=== PATIENT | male | born 1955 | race Caucasian/White ===

== ENCOUNTER 2017-07-19 16:13 | Inpatient (IN) | payer MEDICARE, MEDICAID ==
[~2017-07-19] VITALS: Ht 175.3 cm; Wt 103.4 kg
[~2017-07-19 16:13] MED LIST: LEVO25TA4 PO; PROZ10 PO
[2017-07-19] MEDS ORDERED: LORazepam 2 MG TABLET PO PRN (18:15)
[2017-07-19] MEDS ORDERED: HALOPERIDOL 5 MG TABLET PO PRN (18:15)
[2017-07-19] MEDS ORDERED: ZOLPIDEM TARTRATE 10 MG TABLET PO PRN (18:15)
[2017-07-19] MEDS ORDERED: INFLUENZA VIRUS VACCINE QVS 2017-18 (3YR+)/PF 60 MCG/0.5 ML SYRINGE IM ONE (18:15)
[2017-07-19 19:00] VITALS: BP 154/100
[2017-07-19] MEDS: DOXYCYCLINE 100 MG CAPSULE PO SCH (20:00)
[2017-07-19] MEDS: AmLODIPine BESYLATE 10 MG TABLET PO SCH (20:00)
[2017-07-19 20:43] VITALS: BP 119/65
[2017-07-19] MEDS: CEPHALEXIN MONOHYDRATE 500 MG CAPSULE PO SCH (20:52)
[2017-07-19] MEDS ORDERED: ALBUTEROL SULFATE HFA 90 MCG/PUFF 8 GM INHALER IH PRN (21:30)
[2017-07-19] MEDS ORDERED: ACETAMINOPHEN 325 MG TABLET PO PRN (22:15)
[2017-07-19] MEDS ORDERED: IBUPROFEN 600 MG TABLET PO PRN (22:15)
[2017-07-20 01:33] VITALS: BP 136/78
[2017-07-20 06:20] VITALS: BP 140/78
[2017-07-20 08:27] VITALS: BP 118/70
[2017-07-20] MEDS: AmLODIPine BESYLATE 10 MG TABLET PO SCH (09:12)
[2017-07-20] MEDS: CEPHALEXIN MONOHYDRATE 500 MG CAPSULE PO SCH ×4 (09:12→20:38)
[2017-07-20] MEDS: DOXYCYCLINE 100 MG CAPSULE PO SCH ×2 (09:12→16:36)
[2017-07-20 09:41] LABS: BASOPHILS % (AUTO) 0.7 % (0.0-2.0); EOSINOPHILS % (AUTO) 13.1 % (1.0-6.0); HEMATOCRIT 39.3 % (41-53); HEMOGLOBIN 13.4 g/dL (13.5-17.5); LYMPHOCYTES # (AUTO) 1.1 K/uL (1.0-4.8); LYMPHOCYTES % (AUTO) 21.4 % (22.0-44.0); MEAN CORPUSCULAR HEMOGLOBIN 32.4 pg (26.0-34.0); MEAN CORPUSCULAR HGB CONC 34.2 G/dL (31.0-37.0); MEAN CORPUSCULAR VOLUME 95 fL (80-100); MONOCYTES # (AUTO) 0.6 K/uL (0.1-1.0); MONOCYTES % (AUTO) 10.7 % (2.0-9.0); NEUTROPHILS # (AUTO) 2.9 K/uL (1.8-7.7); NEUTROPHILS % (AUTO) 54.1 % (40.0-70.0); PLATELET COUNT (AUTO) 155 K/uL (150-450); RED BLOOD CELL COUNT(AUTO) 4.14 MIL/uL (4.50-5.90); RED CELL DISTRIBUTION WIDTH 15.4 % (11.5-14.5)
[2017-07-20] MEDS ORDERED: PNEUMOCOCCAL VACCINE POLYVALENT 0.5 ML VIAL [PPSV23] IM ONE (10:30)
[2017-07-20 10:32] LABS: ALANINE AMINOTRANSFERASE 112 U/L (12-78); ALBUMIN 2.8 g/dL (3.4-5.0); ALKALINE PHOSPHATASE 131 U/L (46-116); ANION GAP 9 mmol/L (8-16); ASPARTATE AMINOTRANSFERASE 113 U/L (15-37); BILIRUBIN,TOTAL 0.9 mg/dL (0.1-1.0); CALCIUM, TOTAL 8.8 mg/dL (8.8-10.5); CARBON DIOXIDE 25 mmol/L (22-29); CHLORIDE 102 mmol/L (98-107); CHOL/HDL RATIO 3.6 (4.2-7.3); CHOLESTEROL 101 mg/dL (131-200); CREATININE 0.65 mg/dL (0.60-1.30); FREE T4 (FREE THYROXINE) 1.17 ng/dL (0.76-1.46); GLOMERULAR FILTR. RATE CALC > 60 mL/min (>60); GLUCOSE,RANDOM 104 mg/dL (70-110); HDL CHOLESTEROL 28 mg/dL (40-60); LDL CHOL (CALC.) 63 mg/dL (0-130); POTASSIUM 3.9 mmol/L (3.5-5.1); SODIUM SERUM 136 mmol/L (136-145); THYROID STIMULATING HORMONE 3.04 uIU/mL (0.36-3.74); TOTAL PROTEIN, SERUM 6.6 g/dL (6.4-8.2); TRIGLYCERIDES 49 mg/dL (15-150); UREA NITROGEN, BLOOD 14 mg/dL (7-18)
[2017-07-20 15:56] LABS: HEMOGLOBIN A1C 5.3 % (4.5-6.2)
[2017-07-20 16:36] VITALS: BP 146/91
[2017-07-20] MEDS ORDERED: IBUPROFEN 400 MG TABLET PO PRN (16:45)
[2017-07-20] MEDS ORDERED: ACETAMINOPHEN 325 MG TABLET PO PRN (16:45)
[2017-07-20] MEDS: FERROUS SULFATE 325 MG EC TABLET PO SCH (17:10)
[2017-07-20 17:55] VITALS: BP 139/84
[2017-07-21 00:43] VITALS: BP 124/77
[2017-07-21] MEDS: FERROUS SULFATE 325 MG EC TABLET PO SCH ×2 (06:36→16:55)
[2017-07-21] MEDS: LEVOTHYROXINE SODIUM 25 MCG TABLET PO SCH (06:36)
[2017-07-21 08:00] VITALS: BP 135/76
[2017-07-21 08:31] LABS: HEMOGLOBIN A1C 5.8 % (4.5-6.2)
[2017-07-21] MEDS: DOXYCYCLINE 100 MG CAPSULE PO SCH ×2 (08:51→16:55)
[2017-07-21] MEDS: AmLODIPine BESYLATE 10 MG TABLET PO SCH (08:51)
[2017-07-21] MEDS: CEPHALEXIN MONOHYDRATE 500 MG CAPSULE PO SCH ×3 (08:51→17:02)
[2017-07-21 08:56] LABS: THYROID STIMULATING HORMONE 3.76 uIU/mL (0.36-3.74)
[2017-07-21] MEDS: FLUoxetine HCL 20 MG CAPSULE PO SCH (11:53)
[2017-07-21 16:50] VITALS: BP 137/77
[2017-07-22 01:07] VITALS: BP 140/84
[2017-07-22] MEDS: LEVOTHYROXINE SODIUM 25 MCG TABLET PO SCH (06:15)
[2017-07-22] MEDS: FERROUS SULFATE 325 MG EC TABLET PO SCH ×2 (06:28→16:31)
[2017-07-22] MEDS: AmLODIPine BESYLATE 10 MG TABLET PO SCH (08:35)
[2017-07-22] MEDS: SULFAMETHOX/TRIMETH DS 800-160 MG/TABLET PO SCH ×2 (08:36→16:31)
[2017-07-22] MEDS: FLUoxetine HCL 20 MG CAPSULE PO SCH (08:36)
[2017-07-22] MEDS: CEPHALEXIN MONOHYDRATE 500 MG CAPSULE PO SCH ×2 (08:36→16:31)
[2017-07-22 08:51] VITALS: BP 125/81
[2017-07-22 14:00] VITALS: BP 142/72
[2017-07-22] MEDS: MAG HYDROX/AL HYDROX/SIMETH 30 ML SUSP UDCUP PO PRN (16:48)
[2017-07-22 18:02] VITALS: BP 151/78
[2017-07-23 06:26] VITALS: BP 126/69
[2017-07-23] MEDS: FERROUS SULFATE 325 MG EC TABLET PO SCH ×2 (06:32→17:13)
[2017-07-23] MEDS: LEVOTHYROXINE SODIUM 25 MCG TABLET PO SCH (06:32)
[2017-07-23 08:00] VITALS: BP 120/74
[2017-07-23] MEDS: FLUoxetine HCL 20 MG CAPSULE PO SCH (09:03)
[2017-07-23] MEDS: CEPHALEXIN MONOHYDRATE 500 MG CAPSULE PO SCH ×2 (09:03→17:13)
[2017-07-23] MEDS: SULFAMETHOX/TRIMETH DS 800-160 MG/TABLET PO SCH ×2 (09:03→17:13)
[2017-07-23] MEDS: AmLODIPine BESYLATE 10 MG TABLET PO SCH (09:03)
[2017-07-23 16:19] VITALS: BP 121/66
[2017-07-23] MEDS: MAG HYDROX/AL HYDROX/SIMETH 30 ML SUSP UDCUP PO PRN (16:35)
[2017-07-24] MEDS: MAG HYDROX/AL HYDROX/SIMETH 30 ML SUSP UDCUP PO PRN (00:33)
[2017-07-24 00:46] VITALS: BP 119/88
[2017-07-24] MEDS: LEVOTHYROXINE SODIUM 25 MCG TABLET PO SCH (06:03)
[2017-07-24] MEDS: FERROUS SULFATE 325 MG EC TABLET PO SCH ×2 (06:03→16:35)
[2017-07-24] MEDS ORDERED: LOPERAMIDE HCL 2 MG CAPSULE PO PRN (06:30)
[2017-07-24 08:44] VITALS: BP 123/62
[2017-07-24] MEDS: OMEPRAZOLE 20 MG CAPSULE PO SCH ×2 (09:19→16:13)
[2017-07-24] MEDS: CEPHALEXIN MONOHYDRATE 500 MG CAPSULE PO SCH ×2 (09:19→16:13)
[2017-07-24] MEDS: SULFAMETHOX/TRIMETH DS 800-160 MG/TABLET PO SCH ×2 (09:19→16:13)
[2017-07-24] MEDS: AmLODIPine BESYLATE 10 MG TABLET PO SCH (09:19)
[2017-07-24] MEDS: FLUoxetine HCL 20 MG CAPSULE PO SCH (09:20)
[2017-07-24 16:18] VITALS: BP 140/82
[2017-07-25 00:18] VITALS: BP 118/76
[2017-07-25 06:28] VITALS: BP 127/83
[2017-07-25] MEDS: FERROUS SULFATE 325 MG EC TABLET PO SCH ×2 (06:31→16:31)
[2017-07-25] MEDS: LEVOTHYROXINE SODIUM 25 MCG TABLET PO SCH (06:31)
[2017-07-25] MEDS: SULFAMETHOX/TRIMETH DS 800-160 MG/TABLET PO SCH ×2 (08:41→16:31)
[2017-07-25] MEDS: OMEPRAZOLE 20 MG CAPSULE PO SCH ×2 (08:41→16:30)
[2017-07-25] MEDS: AmLODIPine BESYLATE 10 MG TABLET PO SCH (08:41)
[2017-07-25] MEDS: CEPHALEXIN MONOHYDRATE 500 MG CAPSULE PO SCH ×2 (08:41→16:31)
[2017-07-25] MEDS: FLUoxetine HCL 20 MG CAPSULE PO SCH (08:41)
[2017-07-25] MEDS ORDERED: FLUoxetine HCL 20 MG CAPSULE PO SCH (09:00)
[2017-07-25 09:29] VITALS: BP 142/75
[2017-07-25 16:14] VITALS: BP 133/86
[2017-07-26 01:29] VITALS: BP 123/83
[2017-07-26] MEDS: LEVOTHYROXINE SODIUM 25 MCG TABLET PO SCH (06:37)
[2017-07-26] MEDS: FERROUS SULFATE 325 MG EC TABLET PO SCH ×2 (06:38→16:39)
[2017-07-26] MEDS: CEPHALEXIN MONOHYDRATE 500 MG CAPSULE PO SCH ×2 (08:20→16:39)
[2017-07-26] MEDS: SULFAMETHOX/TRIMETH DS 800-160 MG/TABLET PO SCH ×2 (08:20→16:39)
[2017-07-26] MEDS: FLUoxetine HCL 20 MG CAPSULE PO SCH (08:21)
[2017-07-26] MEDS: AmLODIPine BESYLATE 10 MG TABLET PO SCH (08:21)
[2017-07-26] MEDS: OMEPRAZOLE 20 MG CAPSULE PO SCH ×2 (08:21→16:39)
[2017-07-26 08:29] VITALS: BP 120/73
[2017-07-26 16:21] VITALS: BP_SYST 120; BP_SYST 123; BP_DIAS 82; BP_DIAS 87
[2017-07-27 01:14] VITALS: BP 132/83
[2017-07-27] MEDS: LEVOTHYROXINE SODIUM 25 MCG TABLET PO SCH (06:29)
[2017-07-27] MEDS: FERROUS SULFATE 325 MG EC TABLET PO SCH ×2 (06:30→17:05)
[2017-07-27] MEDS: SULFAMETHOX/TRIMETH DS 800-160 MG/TABLET PO SCH ×2 (08:38→17:05)
[2017-07-27] MEDS: FLUoxetine HCL 20 MG CAPSULE PO SCH (08:38)
[2017-07-27] MEDS: AmLODIPine BESYLATE 10 MG TABLET PO SCH (08:38)
[2017-07-27] MEDS: OMEPRAZOLE 20 MG CAPSULE PO SCH ×2 (08:38→17:05)
[2017-07-27] MEDS: CEPHALEXIN MONOHYDRATE 500 MG CAPSULE PO SCH ×2 (08:38→17:05)
[2017-07-27 08:40] VITALS: BP 126/88
[2017-07-27] MEDS: NICOTINE 21 MG/24 HOUR PATCH TD SCH (15:05)
[2017-07-27 17:18] VITALS: BP 128/79
[2017-07-28] MEDS: LEVOTHYROXINE SODIUM 25 MCG TABLET PO SCH (06:36)
[2017-07-28] MEDS: FERROUS SULFATE 325 MG EC TABLET PO SCH ×2 (06:36→16:15)
[2017-07-28] MEDS: SULFAMETHOX/TRIMETH DS 800-160 MG/TABLET PO SCH ×2 (08:31→16:15)
[2017-07-28] MEDS: FLUoxetine HCL 20 MG CAPSULE PO SCH (08:31)
[2017-07-28] MEDS: OMEPRAZOLE 20 MG CAPSULE PO SCH ×2 (08:32→16:15)
[2017-07-28] MEDS: AmLODIPine BESYLATE 10 MG TABLET PO SCH (08:32)
[2017-07-28] MEDS: CEPHALEXIN MONOHYDRATE 500 MG CAPSULE PO SCH ×2 (08:32→16:15)
[2017-07-28] MEDS: NICOTINE 21 MG/24 HOUR PATCH TD SCH (08:33)
[2017-07-28 09:29] VITALS: BP 137/72
[2017-07-28 16:54] VITALS: BP 140/93
[2017-07-28] MEDS ORDERED: BISACODYL 5 MG EC TABLET PO PRN (19:30)
[2017-07-29] MEDS: FERROUS SULFATE 325 MG EC TABLET PO SCH ×2 (06:35→06:53)
[2017-07-29] MEDS: LEVOTHYROXINE SODIUM 25 MCG TABLET PO SCH (06:35)
[2017-07-29 08:42] VITALS: BP 145/86
[2017-07-29] MEDS: FLUoxetine HCL 20 MG CAPSULE PO SCH (09:06)
[2017-07-29] MEDS: SULFAMETHOX/TRIMETH DS 800-160 MG/TABLET PO SCH ×2 (09:06→16:25)
[2017-07-29] MEDS: OMEPRAZOLE 20 MG CAPSULE PO SCH ×2 (09:06→16:25)
[2017-07-29] MEDS: CEPHALEXIN MONOHYDRATE 500 MG CAPSULE PO SCH ×2 (09:06→16:25)
[2017-07-29] MEDS: DOCUSATE SODIUM 100 MG CAPSULE PO SCH ×2 (09:06→16:25)
[2017-07-29] MEDS: AmLODIPine BESYLATE 10 MG TABLET PO SCH (09:07)
[2017-07-29] MEDS: NICOTINE 21 MG/24 HOUR PATCH TD SCH (09:08)
[2017-07-29 18:06] VITALS: BP 139/77
[2017-07-30] MEDS: LEVOTHYROXINE SODIUM 25 MCG TABLET PO SCH (06:52)
[2017-07-30 08:30] VITALS: BP 122/79
[2017-07-30] MEDS: NICOTINE 21 MG/24 HOUR PATCH TD SCH (09:00)
[2017-07-30] MEDS: SULFAMETHOX/TRIMETH DS 800-160 MG/TABLET PO SCH ×2 (09:50→17:05)
[2017-07-30] MEDS: DOCUSATE SODIUM 100 MG CAPSULE PO SCH ×2 (09:50→17:05)
[2017-07-30] MEDS: FLUoxetine HCL 20 MG CAPSULE PO SCH (09:50)
[2017-07-30] MEDS: FERROUS SULFATE 325 MG EC TABLET PO SCH ×2 (09:50→17:05)
[2017-07-30] MEDS: AmLODIPine BESYLATE 10 MG TABLET PO SCH (09:50)
[2017-07-30] MEDS: CEPHALEXIN MONOHYDRATE 500 MG CAPSULE PO SCH ×2 (09:50→17:05)
[2017-07-30] MEDS: OMEPRAZOLE 20 MG CAPSULE PO SCH ×2 (09:50→17:05)
[2017-07-30 17:00] VITALS: BP 129/77
[2017-07-31] MEDS: LEVOTHYROXINE SODIUM 25 MCG TABLET PO SCH (07:03)
[2017-07-31] MEDS: FERROUS SULFATE 325 MG EC TABLET PO SCH ×2 (07:04→16:23)
[2017-07-31] MEDS: NICOTINE 21 MG/24 HOUR PATCH TD SCH (09:00)
[2017-07-31 09:40] VITALS: BP 122/70
[2017-07-31] MEDS: CEPHALEXIN MONOHYDRATE 500 MG CAPSULE PO SCH ×2 (10:36→16:11)
[2017-07-31] MEDS: OMEPRAZOLE 20 MG CAPSULE PO SCH ×2 (10:36→16:11)
[2017-07-31] MEDS: DOCUSATE SODIUM 100 MG CAPSULE PO SCH ×2 (10:36→16:11)
[2017-07-31] MEDS: FLUoxetine HCL 20 MG CAPSULE PO SCH (10:36)
[2017-07-31] MEDS: SULFAMETHOX/TRIMETH DS 800-160 MG/TABLET PO SCH ×2 (10:36→16:11)
[2017-07-31] MEDS: AmLODIPine BESYLATE 10 MG TABLET PO SCH (10:36)
[2017-07-31] MEDS ORDERED: PROPOFOL 1% 20 ML VIAL IVP ONE (12:00)
[2017-07-31] MEDS ORDERED: ONDANSETRON HCL 4 MG/2 ML VIAL IVP ONE (12:00)
[2017-07-31] MEDS ORDERED: MIDAZOLAM HCL 2 MG/2 ML VIAL IVP ONE (12:00)
[2017-07-31] MEDS ORDERED: ALBUTEROL SULFATE HFA 90 MCG/PUFF 8 GM INHALER IH ONE (12:00)
[2017-07-31] MEDS ORDERED: LIDOCAINE HCL/PF 2% 5 ML VIAL INJ ONE (12:00)
[2017-07-31] MEDS ORDERED: KETOROLAC TROMETHAMINE 60 MG/2 ML VIAL IM ONE (12:00)
[2017-07-31] MEDS ORDERED: DEXAMETHASONE SOD PHOS 4 MG/ML VIAL IVP ONE (12:00)
[2017-07-31] MEDS ORDERED: SUCCINYLCHOLINE CHLORIDE 20 MG/ML 10 ML VIAL IVP ONE (12:00)
[2017-07-31 17:13] VITALS: BP 135/69
[2017-08-01] MEDS: LEVOTHYROXINE SODIUM 25 MCG TABLET PO SCH (06:36)
[2017-08-01] MEDS: FERROUS SULFATE 325 MG EC TABLET PO SCH ×2 (06:36→16:52)
[2017-08-01 08:25] VITALS: BP 142/84
[2017-08-01] MEDS: NICOTINE 21 MG/24 HOUR PATCH TD SCH (09:00)
[2017-08-01] MEDS: FLUoxetine HCL 20 MG CAPSULE PO SCH (09:03)
[2017-08-01] MEDS: AmLODIPine BESYLATE 10 MG TABLET PO SCH (09:03)
[2017-08-01] MEDS: DOCUSATE SODIUM 100 MG CAPSULE PO SCH ×2 (09:03→16:49)
[2017-08-01] MEDS: OMEPRAZOLE 20 MG CAPSULE PO SCH ×2 (09:03→16:50)
[2017-08-01 17:18] VITALS: BP 139/81
[2017-08-02] MEDS: FERROUS SULFATE 325 MG EC TABLET PO SCH (07:00)
[2017-08-02] MEDS: LEVOTHYROXINE SODIUM 25 MCG TABLET PO SCH (07:00)
[2017-08-02] MEDS: AmLODIPine BESYLATE 10 MG TABLET PO SCH (08:40)
[2017-08-02] MEDS: OMEPRAZOLE 20 MG CAPSULE PO SCH (08:40)
[2017-08-02] MEDS: DOCUSATE SODIUM 100 MG CAPSULE PO SCH (08:40)
[2017-08-02] MEDS: FLUoxetine HCL 20 MG CAPSULE PO SCH (08:40)
[2017-08-02] MEDS: NICOTINE 21 MG/24 HOUR PATCH TD SCH (09:00)
[2017-08-02 10:29] VITALS: BP 138/85
[2017-08-02] MEDS ORDERED: AMLO-512 PO (12:01)
[2017-08-02] MEDS ORDERED: OMEP20 PO (12:02)
[2017-08-02] MEDS ORDERED: FERR-89 PO (12:02)
[2017-08-02] MEDS ORDERED: DSS100 PO (12:02)
== END 2017-08-02 14:35 | DRG 876 ==
LOC: B2X 18:11 → 3EX 07-27 13:28
PROC: 0J9H0ZZ Drainage of Left Lower Arm Subcutaneous Tissue and Fascia, Open Approach (ICD-10-PCS; principal; 2017-07-31 09:20)
DX: F33.2 Major depressive disorder, recurrent severe without psychotic features (principal); R45.851 Suicidal ideations; K57.92 Diverticulitis of intestine, part unspecified, without perforation or abscess without bleeding; K74.60 Unspecified cirrhosis of liver; L02.414 Cutaneous abscess of left upper limb; E03.9 Hypothyroidism, unspecified; R79.89 Other specified abnormal findings of blood chemistry; R26.9 Unspecified abnormalities of gait and mobility; B19.20 Unspecified viral hepatitis C without hepatic coma; D64.9 Anemia, unspecified; E66.9 Obesity, unspecified; J44.9 Chronic obstructive pulmonary disease, unspecified; K21.9 Gastro-esophageal reflux disease without esophagitis; R29.6 Repeated falls; F19.10 Other psychoactive substance abuse, uncomplicated; Z28.21 Immunization not carried out because of patient refusal; Z59.0 Homelessness; I10 Essential (primary) hypertension; Z88.6 Allergy status to analgesic agent; Z91.5 Personal history of self-harm; Z71.51 Drug abuse counseling and surveillance of drug abuser; Z79.899 Other long term (current) drug therapy
CPT/HCPCS: 10060; 80074; 83036; 84439; 84443; 87070; 87205; 88304; 90471; 97161; 97165; J0330; J1100; J1885; J2250; J2405; J2704; J3490; J3535

== ENCOUNTER 2017-07-21 13:40 | Emergency (ER) | payer MEDICARE, MEDICAID ==
[~2017-07-21] VITALS: Ht 175.3 cm; Wt 100.0 kg
[2017-07-21] MEDS ORDERED: SULFAMETHOX/TRIMETH DS 800-160 MG/TABLET PO ONE (14:30)
[2017-07-21] MEDS ORDERED: CEPHALEXIN MONOHYDRATE 250 MG/5 ML SUSPENSION ORAL.SYG PO ONE (14:30)
[2017-07-21 15:40] VITALS: BP 142/83
== END 2017-07-21 16:32 | disposition home or self-care (01) ==
LOC: EMS 13:41
DX: L03.114 Cellulitis of left upper limb (principal); I10 Essential (primary) hypertension; E03.9 Hypothyroidism, unspecified; F17.210 Nicotine dependence, cigarettes, uncomplicated; Z88.5 Allergy status to narcotic agent
CPT/HCPCS: 99283; 99284

== ENCOUNTER 2018-07-20 14:27 | Inpatient (IN) | payer MEDICARE, MEDICAID ==
[~2018-07-20] VITALS: Ht 175.3 cm; Wt 109.7 kg
[~2018-07-20 14:27] MED LIST changes: +AMLO-512 PO; +DSS100 PO; +FERR-89 PO; +OMEP20 PO
[2018-07-20] MEDS ORDERED: ALBUTEROL SULFATE 2.5 MG/0.5 ML NEB SOLUTION NEB ONE (15:00)
[2018-07-20] MEDS ORDERED: IPRATROPIUM BROMIDE 0.5 MG/2.5 ML NEB SOLUTION NEB ONE ×2 (15:00→17:30)
[2018-07-20 15:35] LABS: BASOPHILS % (AUTO) 0.7 % (0.0-2.0); HEMATOCRIT 41.3 % (41-53); LYMPHOCYTES # (AUTO) 1.5 K/uL (1.0-4.8); LYMPHOCYTES % (AUTO) 23.7 % (22.0-44.0); MEAN CORPUSCULAR HEMOGLOBIN 31.9 pg (26.0-34.0); MEAN CORPUSCULAR HGB CONC 33.8 G/dL (31.0-37.0); MEAN CORPUSCULAR VOLUME 94 fL (80-100); MONOCYTES # (AUTO) 0.5 K/uL (0.1-1.0); MONOCYTES % (AUTO) 7.5 % (2.0-9.0); NEUTROPHILS # (AUTO) 3.8 K/uL (1.8-7.7); NEUTROPHILS % (AUTO) 61.1 % (40.0-70.0); PLATELET COUNT (AUTO) 109 K/uL (150-450); RED BLOOD CELL COUNT(AUTO) 4.38 MIL/uL (4.50-5.90); RED CELL DISTRIBUTION WIDTH 15.1 % (11.5-14.5)
[2018-07-20 15:52] LABS: ANION GAP 8 mmol/L (8-16); CALCIUM, TOTAL 9.7 mg/dL (8.8-10.5); CARBON DIOXIDE 26 mmol/L (22-29); CHLORIDE 103 mmol/L (98-107); CREATININE 0.86 mg/dL (0.60-1.30); GLOMERULAR FILTR. RATE CALC > 60 mL/min (>60); GLUCOSE,RANDOM 103 mg/dL (70-110); POTASSIUM 4.4 mmol/L (3.5-5.1); SODIUM SERUM 137 mmol/L (136-145); UREA NITROGEN, BLOOD 23 mg/dL (7-18)
[2018-07-20 16:01] LABS: B-TYPE NATRIURETIC PEPTIDE 23 pg/mL (0-100)
[2018-07-20 16:02] LABS: ALANINE AMINOTRANSFERASE 77 U/L (12-78); ALBUMIN 3.3 g/dL (3.4-5.0); ALKALINE PHOSPHATASE 105 U/L (46-116); ASPARTATE AMINOTRANSFERASE 66 U/L (15-37); BILIRUBIN,TOTAL 1.1 mg/dL (0.1-1.0); TOTAL PROTEIN, SERUM 7.1 g/dL (6.4-8.2)
[2018-07-20] MEDS ORDERED: ALBUTEROL SULFATE 5 MG/ML 20 ML NEB SOLN [BULK] NEB ONE (17:30)
[2018-07-20] MEDS ORDERED: MethylPREDNISolone SOD SUCC 125 MG/2 ML VIAL IVP ONE (17:30)
[2018-07-20 17:37] LABS: INR 1.1 (0.9-1.1); PROTHROMBIN TIME 11.2 SEC (9.4-11.6)
[2018-07-20] MEDS ORDERED: 0.9% SODIUM CHLORIDE 5 ML NEB SOLUTION NEB ONE (18:26)
[2018-07-20] MEDS ORDERED: ONDANSETRON HCL 4 MG/2 ML VIAL IVP PRN (19:45)
[2018-07-20] MEDS ORDERED: 0.9% SODIUM CHLORIDE 10 ML SYRINGE IVP PRN (19:45)
[2018-07-20] MEDS ORDERED: ACETAMINOPHEN 325 MG TABLET PO PRN ×2 (19:45→21:30)
[2018-07-20] MEDS ORDERED: IPRATROPIUM BROMIDE 0.5 MG/2.5 ML NEB SOLUTION NEB SCH (20:00)
[2018-07-20] MEDS ORDERED: ALBUTEROL SULFATE 2.5 MG/0.5 ML NEB SOLUTION NEB SCH (20:00)
[2018-07-20] MEDS ORDERED: ALBUTEROL SULFATE 2.5 MG/0.5 ML NEB SOLUTION NEB PRN (21:30)
[2018-07-20 21:41] VITALS: BP 121/70
[2018-07-20] MEDS: HEPARIN SODIUM,PORCINE 5,000 UNITS/ML VIAL SQ SCH (23:53)
[2018-07-21 04:20] VITALS: BP 107/50
[2018-07-21 05:54] LABS: BASOPHILS % (AUTO) 0.1 % (0.0-2.0); EOSINOPHILS % (AUTO) 0.1 % (1.0-6.0); HEMATOCRIT 38.9 % (41-53); LYMPHOCYTES # (AUTO) 0.9 K/uL (1.0-4.8); LYMPHOCYTES % (AUTO) 15.2 % (22.0-44.0); MEAN CORPUSCULAR HEMOGLOBIN 31.4 pg (26.0-34.0); MEAN CORPUSCULAR HGB CONC 33.3 G/dL (31.0-37.0); MEAN CORPUSCULAR VOLUME 94 fL (80-100); MONOCYTES # (AUTO) 0.1 K/uL (0.1-1.0); MONOCYTES % (AUTO) 2.2 % (2.0-9.0); NEUTROPHILS # (AUTO) 4.7 K/uL (1.8-7.7); NEUTROPHILS % (AUTO) 82.4 % (40.0-70.0); RED BLOOD CELL COUNT(AUTO) 4.13 MIL/uL (4.50-5.90); RED CELL DISTRIBUTION WIDTH 14.6 % (11.5-14.5)
[2018-07-21 06:51] LABS: PLATELET COUNT (AUTO) 100 K/uL (150-450)
[2018-07-21 06:54] LABS: ALANINE AMINOTRANSFERASE 65 U/L (12-78); ALBUMIN 2.9 g/dL (3.4-5.0); ALKALINE PHOSPHATASE 92 U/L (46-116); ANION GAP 7 mmol/L (8-16); ASPARTATE AMINOTRANSFERASE 49 U/L (15-37); CALCIUM, TOTAL 9.5 mg/dL (8.8-10.5); CARBON DIOXIDE 26 mmol/L (22-29); CHLORIDE 103 mmol/L (98-107); CREATININE 0.93 mg/dL (0.60-1.30); GLOMERULAR FILTR. RATE CALC > 60 mL/min (>60); GLUCOSE,RANDOM 134 mg/dL (70-110); SODIUM SERUM 136 mmol/L (136-145); THYROID STIMULATING HORMONE 0.46 uIU/mL (0.36-3.74); TOTAL PROTEIN, SERUM 6.3 g/dL (6.4-8.2); UREA NITROGEN, BLOOD 32 mg/dL (7-18)
[2018-07-21] MEDS ORDERED: PNEUMOCOCCAL VACCINE POLYVALENT 0.5 ML VIAL [PPSV23] IM ONE (07:15)
[2018-07-21] MEDS: HEPARIN SODIUM,PORCINE 5,000 UNITS/ML VIAL SQ SCH ×2 (08:00→15:08)
[2018-07-21 08:05] VITALS: BP_SYST 116; BP_SYST 139; BP_DIAS 72; BP_DIAS 87
[2018-07-21] MEDS ORDERED: DOCUSATE SODIUM 100 MG CAPSULE PO SCH (09:00)
[2018-07-21] MEDS ORDERED: ASPIRIN 81 MG CHEWABLE TABLET PO SCH (09:00)
[2018-07-21] MEDS ORDERED: FAMOTIDINE 20 MG TABLET PO SCH (09:00)
[2018-07-21 11:55] VITALS: BP 114/71
== END 2018-07-21 19:10 | disposition home or self-care (01) | DRG 434 ==
LOC: EMS 14:27 → 5N 20:00
PROVIDERS: ADMIT Internal Medicine; ATTEND Internal Medicine
DX: K74.60 Unspecified cirrhosis of liver (principal); E66.9 Obesity, unspecified; Z68.35 Body mass index [BMI] 35.0-35.9, adult; J44.9 Chronic obstructive pulmonary disease, unspecified; R16.0 Hepatomegaly, not elsewhere classified; Z59.0 Homelessness; I10 Essential (primary) hypertension; Z88.5 Allergy status to narcotic agent; F32.9 Major depressive disorder, single episode, unspecified; E03.9 Hypothyroidism, unspecified; Z90.49 Acquired absence of other specified parts of digestive tract; F17.210 Nicotine dependence, cigarettes, uncomplicated; Z28.21 Immunization not carried out because of patient refusal; Z71.6 Tobacco abuse counseling
CPT/HCPCS: 82105; 84443; 87081; 93005; 94640; G0378; J1644; J2930